=== PATIENT | male | born 1955 | race Caucasian/White ===

== ENCOUNTER 2019-05-26 09:35 | Outpatient (REF) | payer BC, SELFPAY ==
[2019-05-26 13:13] LABS: Calculated LDL 140 mg/dL; Cholesterol 234 mg/dL (50-200); Glucose 90 mg/dL (70-100); HDL Cholesterol 65 mg/dL (40-60); TSH (W/Ref FT4) 8.36 uIU/mL (0.36-3.74); Triglyceride 146 mg/dL (30-150)
[2019-05-26 13:47] LABS: FREE T4 0.73 ng/dL (0.76-1.46)
== END 2019-05-26 09:55 ==
LOC: NCHCN 09:35
PROVIDERS: PCP Nurse Practitioner Family; Visit Provider Nurse Practitioner Family
DX: Z00.00 Encounter for general adult medical examination without abnormal findings (principal); E03.9 Hypothyroidism, unspecified; E66.9 Obesity, unspecified
CPT/HCPCS: 80061; 82947; 84439; 84443

== ENCOUNTER 2019-07-10 16:45 | Outpatient (REF) | payer BC, SELFPAY ==
[2019-07-10 21:18] LABS: TSH (W/Ref FT4) 0.56 uIU/mL (0.36-3.74)
[2019-07-13 11:54] LABS: Hepatitis C Ab w Rflx HCV PCR Negative (Negative)
== END 2019-07-10 17:05 ==
LOC: NCHCN 16:45
PROVIDERS: PCP Nurse Practitioner Family; Visit Provider Nurse Practitioner Family
DX: E03.9 Hypothyroidism, unspecified (principal); Z00.00 Encounter for general adult medical examination without abnormal findings; Z11.59 Encounter for screening for other viral diseases
CPT/HCPCS: 86803; 84443

== ENCOUNTER 2020-06-30 11:18 | Outpatient (REF) | payer BC, SELFPAY ==
[2020-06-30 21:35] LABS: Calculated LDL 114 mg/dL (<100); Cholesterol 207 mg/dL (<200); HDL Cholesterol 64 mg/dL (40-60); Triglyceride 149 mg/dL (<150)
[2020-06-30 21:55] LABS: TSH 0.24 uIU/mL (0.36-3.74)
[2020-06-30 22:14] LABS: FREE T4 0.96 ng/dL (0.76-1.46)
== END 2020-06-30 11:38 ==
LOC: NCHCN 11:18
PROVIDERS: PCP Nurse Practitioner Family; Visit Provider Nurse Practitioner Family
DX: E78.5 Hyperlipidemia, unspecified (principal); E03.9 Hypothyroidism, unspecified
CPT/HCPCS: 80061; 84439; 84443

== ENCOUNTER 2020-09-15 21:22 | Outpatient (REF) | payer BC, SELFPAY ==
[2020-09-15 20:52] LABS: Hemoglobin A1C 5.8 % (<5.7)
[2020-09-15 20:58] LABS: TSH (W/Ref FT4) 1.84 uIU/mL (0.36-3.74)
[2020-09-19 10:39] LABS: HIV-1/2 Ag & Ab Screen Negative (Negative)
== END 2020-09-15 21:42 ==
LOC: NCHCN 21:22
PROVIDERS: PCP Nurse Practitioner Family; Visit Provider Nurse Practitioner Family
DX: E78.5 Hyperlipidemia, unspecified (principal); E03.9 Hypothyroidism, unspecified; Z00.00 Encounter for general adult medical examination without abnormal findings; E66.9 Obesity, unspecified; Z13.1 Encounter for screening for diabetes mellitus; Z11.4 Encounter for screening for human immunodeficiency virus [HIV]
CPT/HCPCS: 87389; 83036; 84443

== ENCOUNTER 2021-04-18 01:11 | Outpatient (CLI) | payer BC, SELFPAY ==
--- NOTE | 2021-04-18 07:55 | DI.RAD_ITS ---
Exam(s) XR KNEE RT 3V AP,LAT,NANCY EXAM: XR KNEE RT 3V AP,LAT,NANCY CLINICAL HISTORY: RT KNEE PAIN, M25.561. TECHNIQUE: 2D digital imaging was performed. COMPARISON: No exams were available for comparison FINDINGS: BONES: No acute fracture is present. No bony destructive lesion is seen. JOINTS: The knee is normally aligned. There is a small joint effusion. There is mild narrowing of th e medial femoral tibial joint. SOFT TISSUE: Normal. IMPRESSION: 1. Mild narrowing of the medial joint space. 2. Small joint effusion. DATA REPOSITORY: RADIATION DOSE DELIVERED:
== END 2021-04-18 01:31 ==
PROVIDERS: PCP Nurse Practitioner Family; Visit Provider Family Medicine
DX: M25.561 Pain in right knee (principal); M25.461 Effusion, right knee
CPT/HCPCS: 73562

== ENCOUNTER 2021-06-29 17:47 | Outpatient (REF) | payer BC, SELFPAY ==
[2021-06-30 06:41] LABS: TSH (W/Ref FT4) 0.47 uIU/mL (0.36-3.74)
== END 2021-06-29 17:48 | disposition home or self-care (01) ==
LOC: NCHCN 17:47
PROVIDERS: PCP Nurse Practitioner Family; Visit Provider Nurse Practitioner Family
DX: E03.9 Hypothyroidism, unspecified (principal)
CPT/HCPCS: 84443

== ENCOUNTER 2021-09-18 15:52 | Outpatient (REF) | payer BC, SELFPAY ==
[2021-09-18 15:25] LABS: Calculated LDL 132 mg/dL (<100); Cholesterol 218 mg/dL (<200); HDL Cholesterol 68 mg/dL (40-60); Triglyceride 94 mg/dL (<150)
== END 2021-09-18 15:53 | disposition home or self-care (01) ==
LOC: NCHCN 15:52
PROVIDERS: PCP Nurse Practitioner Family; Visit Provider Nurse Practitioner Family
DX: Z00.00 Encounter for general adult medical examination without abnormal findings (principal); E03.9 Hypothyroidism, unspecified; E66.8 Other obesity; R73.03 Prediabetes
CPT/HCPCS: 80061

== ENCOUNTER 2022-06-19 14:43 | Outpatient (REF) | payer BC, SELFPAY ==
[2022-06-19 16:31] LABS: TSH (W/Ref FT4) 0.56 uIU/mL (0.36-3.74); Vitamin B12 377 pg/mL (193-986)
== END 2022-06-19 14:44 | disposition home or self-care (01) ==
LOC: NCHCN 14:43
PROVIDERS: PCP Nurse Practitioner Family; Visit Provider Nurse Practitioner Family
DX: E03.9 Hypothyroidism, unspecified (principal); Z00.00 Encounter for general adult medical examination without abnormal findings
CPT/HCPCS: 82607; 84443

== ENCOUNTER 2022-11-12 15:58 | Outpatient (REF) | payer BC, SELFPAY ==
[2022-11-12 21:17] LABS: Abs Immature Grans 0.07 10^3/uL (0.0-0.06); Absolute Basophil Count 0.04 10^3/uL (0.0-0.2); Absolute Eosinophil Count 0.09 10^3/uL (0.0-0.7); Absolute Lymphocyte Count 2.18 10^3/uL (1.2-3.4); Absolute Monocyte Count 0.73 10^3/uL (0.1-0.8); Absolute Neutrophil Count 3.94 10^3/uL (1.2-6.7); Basophils % 0.6; Eosinophils % 1.3; HCT 41.4 % (40.0-50.0); HGB 13.7 g/dL (13.5-17.5); Lymphocytes % 30.9; MCH 30.1 pg (27.0-33.0); MCHC 33.1 % (32.0-36.0); MCV 91 fL (80-95); Monocytes % 10.4; Neutrophils % 55.8; Platelet Count 235 10^3/uL (130-400); RBC 4.55 10^6/uL (4.36-5.78); RDW 12.6 % (11.8-14.1); RDW-SD 42.5 fL; WBC 7.05 10^3/uL (4.4-10.8)
[2022-11-12 21:36] LABS: Hemoglobin A1C 6.1 % (<5.7)
[2022-11-12 22:07] LABS: ALT 30 U/L (16-63); AST 21 U/L (15-37); Albumin 4.2 g/dL (3.4-5.0); Alkaline Phosphatase 62 U/L (46-116); Bilirubin, Total 0.3 mg/dL (0.2-1.0); TSH (W/Ref FT4) 0.59 uIU/mL (0.36-3.74); Total Protein 7.3 g/dL (6.4-8.2)
[2022-11-12 22:40] LABS: Bilirubin, Direct 0.1 mg/dL (0.0-0.2)
== END 2022-11-12 15:59 | disposition home or self-care (01) ==
LOC: NCHCN 15:58
PROVIDERS: PCP Nurse Practitioner Family; Visit Provider Nurse Practitioner Family
DX: Z00.00 Encounter for general adult medical examination without abnormal findings (principal); E03.9 Hypothyroidism, unspecified; E78.5 Hyperlipidemia, unspecified; R73.03 Prediabetes; R20.2 Paresthesia of skin; F52.21 Male erectile disorder; E66.9 Obesity, unspecified
CPT/HCPCS: 80076; 83036; 84443; 85025

== ENCOUNTER 2023-11-18 20:27 | Outpatient (REF) | payer BC, SELFPAY ==
[2023-11-18 21:18] LABS: Hemoglobin A1C 5.8 % (<5.7)
[2023-11-18 21:27] LABS: ALT 34 U/L (16-63); AST 21 U/L (15-37); Albumin 3.9 g/dL (3.4-5.0); Alkaline Phosphatase 53 U/L (46-116); Anion Gap 11.9 mmol/L (3-11); BUN 22 mg/dL (7-18); Bilirubin, Total 0.4 mg/dL (0.2-1.0); CO2 24.1 mmol/L (21.0-32.0); Calcium 9.1 mg/dL (8.5-10.1); Calculated LDL 133 mg/dL (<100); Chloride 106 mmol/L (98-107); Cholesterol 231 mg/dL (<200); Estimated GFR 82.49 (mL/min/1.73m2); Glucose 100 mg/dL (74-106); HDL Cholesterol 85 mg/dL (40-60); Potassium 4.9 mmol/L (3.5-5.1); Sodium 142 mmol/L (136-145); TSH (W/Ref FT4) 0.41 uIU/mL (0.36-3.74); Triglyceride 65 mg/dL (<150)
== END 2023-11-18 20:28 | disposition home or self-care (01) ==
LOC: NCHCN 20:27
PROVIDERS: PCP Nurse Practitioner Family; Visit Provider Nurse Practitioner Family
DX: E03.9 Hypothyroidism, unspecified (principal); R73.03 Prediabetes; E78.5 Hyperlipidemia, unspecified
CPT/HCPCS: 80053; 80061; 83036; 84443

== ENCOUNTER 2024-01-02 05:28 | Outpatient (CLI) | payer BC, SELFPAY ==
--- NOTE | 2024-01-02 10:14 | W.NUTRFU ---
Date of service: 01/02/24 Time of Service: 09:00 Nutrition Note NOTE: Gurpreet comes in for nutrition visit geared towards HLD as he states he declined statin that was recommended by his provider with recent LDL 133mg/dL. He also raised concern with prediabetes and carb goals. He reports being 219lbs about 9 months ago and started to focus on his diet habits more - targeted lowering his added sugar intake and started being more aware of portions (for instance cut back from 8-9oz meat to just half to 1/4 of this). He states over the last 9 months he has dropped weight and was just 185lbs the other day and states his A1C is just around 5.7%. Affirmed his changes have made a difference and supported continued efforts to watch added sugar and eat less meat. We reviewed target foods to try and get daily to lower LDL - oats, green tea, garlic, citrus, whole soy, nuts/seeds, legumes etc... We reviewed recommended kcals of ~2000 with ~200g carbs or 13 servings - reviewed serving size and 15g carb per serving and gave some supporting materials to take home. also reviewed glycemic index and choosing slower/harder to digest carb choices. We discussed protein needs at ~85g per day and making sure to work towards some resistance exercises and suggested resistance band work as an option. Gurpreet took my card to contact should he need follow up, more resources or has any quick questions he needs to call with Time Spent in Nutritional Counseling and Treatment: 45 minutes
== END 2024-01-02 05:29 | disposition home or self-care (01) ==
LOC: DS 05:28
PROVIDERS: PCP Nurse Practitioner Family; Visit Provider Dietitian, Registered
DX: E78.5 Hyperlipidemia, unspecified (principal)
CPT/HCPCS: 00123; 97802

== ENCOUNTER 2024-12-01 01:16 | Outpatient (CLI) | payer MEDICARE, SELFPAY ==
--- NOTE | 2024-12-01 | DI.US_ITS ---
Exam(s) US AAA SCREENING EXAM: US AAA SCREENING CLINICAL HISTORY: Family h/o AAA, Z82.49-family h/o ischemic heart disease and other diseases COMPARISON: No exams were available for comparison FINDINGS: Abdominal Aorta: Proximal: 2.2 cm Mid: 2.0 cm Distal: 2.2 cm Iliacs: Right: 1.3 cm Left: 1.3 cm IMPRESSION: No evidence of abdominal aortic aneurysm. DATA REPOSITORY:
== END 2024-12-01 01:36 ==
LOC: DI 01:16
PROVIDERS: PCP Nurse Practitioner Family; Visit Provider Nurse Practitioner Family
DX: Z13.6 Encounter for screening for cardiovascular disorders (principal)
CPT/HCPCS: 76706

== ENCOUNTER 2024-12-09 12:01 | Outpatient (REF) | payer MEDICARE, SELFPAY ==
[2024-12-09 16:45] LABS: ALT 26 U/L (16-63); AST 21 U/L (15-37); Albumin 4.1 g/dL (3.4-5.0); Alkaline Phosphatase 52 U/L (46-116); BUN 24 mg/dL (7-18); Bilirubin, Total 0.4 mg/dL (0.2-1.0); CREATININE 1.1 mg/dL (0.70-1.30); Calcium 9.5 mg/dL (8.5-10.1); Chloride 105 mmol/L (98-107); Estimated GFR 73.12 (mL/min/1.73m2); Glucose 91 mg/dL (74-106); Potassium 4.7 mmol/L (3.5-5.1); Sodium 144 mmol/L (136-145); TSH (W/Ref FT4) 0.75 uIU/mL (0.36-3.74)
[2024-12-09 17:05] LABS: Calculated LDL 110 mg/dL (<100); Cholesterol 221 mg/dL (<200); HDL Cholesterol 97 mg/dL (>or=40); Triglyceride 74 mg/dL (<150)
== END 2024-12-09 12:02 | disposition home or self-care (01) ==
LOC: NCHCN 12:01
PROVIDERS: PCP Nurse Practitioner Family; Visit Provider Nurse Practitioner Family
DX: E78.49 Other hyperlipidemia (principal); E03.9 Hypothyroidism, unspecified
CPT/HCPCS: 80053; 80061; 84443